=== PATIENT | male | born 1965 | race Caucasian/White ===

== ENCOUNTER 2020-04-19 13:01 | Emergency (ER) | payer BC ==
[2020-04-19 17:00] LABS: HEMOGLOBIN 15.4 gm/dl (14.0-17.5); RED BLOOD COUNT 5.28 M/UL (4.20-5.50); WHITE BLOOD COUNT 3.6 K/UL (4.5-11.0)
[2020-04-19 17:19] LABS: BUN/CREATININE RATIO 11 (0-10)
== END 2020-04-19 21:50 | disposition home or self-care (01) ==
LOC: ER1 13:01
PROVIDERS: Physician Assistant Medical
DX: R07.9 Chest pain, unspecified (principal); U07.1 COVID-19
CPT/HCPCS: 71045; 80053; 81001; 82550; 82553; 83874; 84484; 85025; 85379; 85610; 93005; 99285

== ENCOUNTER → 2020-10-20 | Outpatient (CLI) | payer BC | LOC: KOH-I 11:55 | DX: M47.26 Other spondylosis with radiculopathy, lumbar region (principal) | CPT/HCPCS: 72100 ==